=== PATIENT | male | born 1985 | race Caucasian/White ===

== ENCOUNTER 2016-05-26 10:19 | Emergency (ER) | payer MEDICAID ==
[~2016-05-26] VITALS: Ht 162.6 cm; Wt 73.0 kg
[2016-05-26 10:21] VITALS: Ht 162.6 cm; Wt 73.0 kg
[2016-05-26] MEDS ORDERED: IBUPROFEN 600 MG TAB PO ONE (11:00)
--- NOTE | 2016-05-26 11:46 | ERD ---
ER Documentation Chief Complaint Date/Time DATE: 05/26/16 TIME: 11:43 Chief Complaint rt foot pain , soccer injury HPI Patient is a 31-year-old male who presents to the ED with right ankle pain after sustaining an injury playing soccer last night. He states that his foot inverted. He states that the pain is located on his ankles and feet. Denies radiation of pain. Denies numbness or tingling. He states that he is unable to put pressure on his foot and walk. Denies calf pain. Denies pain in his knees. Denies fever or chills. Denies headache, dizziness. Denies hitting his head, passing out or losing consciousness. No other complaints. ROS All systems reviewed and are negative except as per history of present illness. Medications Home Meds Active Scripts Ibuprofen* (Motrin*) 800 Mg Tab, 800 MG PO Q6, #30 TAB Prov:CHELA GUTHRIE PA-C 05/26/16 PMhx/Soc Medical and Surgical Hx: pt denies Medical Hx, pt denies Surgical Hx Physical Exam Vitals Vital Signs Date Time Temp Pulse Resp B/P Pulse Ox O2 Delivery O2 Flow Rate FiO2 05/26/16 10:21 98.7 97 18 156/67 98 Physical Exam GENERAL: Well-developed, well-nourished male. Appears in no acute distress. HEAD: Normocephalic, atraumatic. EYES: Pupils are equally reactive bilaterally. EOMs grossly intact. No conjunctival erythema. ENT: Moist mucous membranes. No uvula deviation. No kissing tonsils. No exudates. NECK: Supple. No lymphadenopathy or thyromegaly. No meningismus. negative kernig. negative brudinski. LUNG: Clear to auscultation bilaterally. No rhonchi, wheezing, rales or coarse breath sounds. HEART: Regular rate and rhythm. No murmurs, rubs or gallops. Extremities: Equal pulses bilaterally. No peripheral clubbing, cyanosis or edema. No unilateral leg swelling. Tenderness to bilateral right malleoli. No proximal fibula pain. No tenderness to the base of the fifth metatarsal. Slightly ecchymosis and swollen. No redness, warmth. No open wounds or laceration. No deformities or step-offs. Range of motion intact. Pulses intact. Negative Homans sign. No pain above the ankle joint. NEUROLOGIC: Alert and oriented. Moving all four extremities. 5/5 strength in all extremities. Normal speech. unsteady gait. SKIN: Normal color. Warm and dry. No rashes or lesions. Capillary refill < 2 seconds Results 24 hrs Current Medications Medications (Trade) Dose Ordered Sig/Denise Route PRN Reason Start Time Stop Time Status Last Admin Dose Admin Ibuprofen (Motrin) 600 mg ONCE ONCE PO 05/26/16 11:00 05/26/16 11:01 DC 05/26/16 11:22 Procedures/MDM ER COURSE: I kept the patient and/or family informed of laboratory and diagnostic imaging results throughout the emergency room course. IMAGING STUDIES [place] [address] Radiology Main Line: [phone] DIAGNOSTIC IMAGING REPORT Patient: JUNIE GUADARRAMA : 1985 Age: 31 Sex: M MR #: [id number] DOS: 05/26/16 1100 Ordering MD: CHELA GUTHRIE PA-C Location: [facility] Room/Bed: PROCEDURE: XR Right Ankle CLINICAL INDICATION: Pain TECHNIQUE: Standard 3 view radiographs were submitted. COMPARISON: T FINDINGS: None available Osseous structures: here is a nondisplaced oblique fracture through the distal fibular metaphysis. The remaining osseous elements appear intact. Joint spaces: The ankle mortise is well maintained. Soft tissues: Soft tissue swelling is seen laterally. IMPRESSION: Nondisplaced oblique fracture of the distal right fibula. Physician Rebekah Date Time Electronically viewed and signed by Physician Rebekah on 05/26/2016 11:49 RH/ CC: CHELA GUTHRIE PA-C [place] [address] Radiology Main Line: [phone] DIAGNOSTIC IMAGING REPORT Patient: JUNIE GUADARRAMA : 1985 Age: 31 Sex: M MR #: [id number] DOS: 05/26/16 1100 Ordering MD: CHELA GUTHRIE PA-C Location: [facility] Room/Bed: PROCEDURE: XR Right Foot CLINICAL INDICATION: Pain TECHNIQUE: AP, oblique, and lateral radiographs were submitted. COMPARISON: None FINDINGS: Osseous structures: appear well mineralized and intact with no fracture or destructive process identified. Joint spaces: There is a mild hallux valgus. The joint spaces are otherwise unremarkable. Soft tissues: appear unremarkable. IMPRESSION: Mild hallux valgus. Physician Rebekah Date Time Electronically viewed and signed by Physician Rebekah on 05/26/2016 12:17 RH/ CC: CHELA GUTHRIE PA-C PROCEDURES Posterior ankle splint. Splint Assessment: Neurovascularly intact post splint placement with good fit. Crutches were given to patient. MEDICAL DECISION MAKING: This is a 31-year-old male who presents with right ankle pain after sustaining an injury playing soccer last night. Vital signs were reviewed. Patient is afebrile. Patient is not hypoxic. X-rays of by radiologist shows Nondisplaced oblique fracture of the distal right fibula. Patient does not have proximal fibula pain. Low suspicion for dislocation, septic joint, compartment syndrome, osteomyelitis, avascular necrosis, DVT, Achilles tendon rupture, cellulitis. At this time, unable to rule out any tendon and ligament injuries. DISCHARGE: At this time, patient is stable for discharge and outpatient management with no new complaints during the ER course. Patient was sent home with copy of x-ray report and ibuprofen for pain and to follow-up with orthopedics this week. Names of orthopedics in the area were given to patient. Patient will be discharged home with instructions to recheck for new or worsening symptoms such as fever, nausea, weakness, LOC and to follow up with primary care in the next 1 -2 days. Patient was advised to return to the ER for any new or worsening symptoms. Plan was discussed and patient and/or family understands and agrees. Home instructions were given. Departure Diagnosis: Primary Impression: Fibula fracture Encounter type: initial encounter Fibula location: distal Fracture type: closed Fracture morphology: unspecified fracture morphology Laterality: right Qualified Code: S82.831A - Closed fracture of distal end of right fibula , unspecified fracture morphology, initial encounter Condition: Stable CHELA GUTHRIE PA-C May 26, 2016 11:46
--- NOTE | 2016-05-26 11:49 | RADRPT ---
PROCEDURE: XR Right Ankle CLINICAL INDICATION: Pain TECHNIQUE: Standard 3 view radiographs were submitted. COMPARISON: T FINDINGS: None available Osseous structures: here is a nondisplaced oblique fracture through the distal fibular metaphysis. The remaining osseous elements appear intact. Joint spaces: The ankle mortise is well maintained. Soft tissues: Soft tissue swelling is seen laterally. IMPRESSION: Nondisplaced oblique fracture of the distal right fibula. Physician Rebekah Date Time Electronically viewed and signed by Alvin Castillo Physician on 05/26/2016 11:49 RH/
--- NOTE | 2016-05-26 12:17 | RADRPT ---
PROCEDURE: XR Right Foot CLINICAL INDICATION: Pain TECHNIQUE: AP, oblique, and lateral radiographs were submitted. COMPARISON: None FINDINGS: Osseous structures: appear well mineralized and intact with no fracture or destructive process iden tified. Joint spaces: There is a mild hallux valgus. The joint spaces are otherwise unremarkable. Soft tissues: appear unremarkable. IMPRESSION: Mild hallux valgus. Physician Rebekah Date Time Electronically viewed and signed by Physician Rebekah on 05/26/2016 12:17 /
[2016-05-26] MEDS ORDERED: IBUP800T25 PO (12:24)
== END 2016-05-26 13:14 | disposition home or self-care (01) ==
LOC: FTE 10:19
DX: S82.831A Other fracture of upper and lower end of right fibula, initial encounter for closed fracture (principal); X50.9XXA Other and unspecified overexertion or strenuous movements or postures, initial encounter; Y92.9 Unspecified place or not applicable
CPT/HCPCS: 29515; 73610; 73630; Z7502; Z7610

== ENCOUNTER 2017-07-29 23:55 | Emergency (ER) | END 2017-07-30 03:20 | disposition home or self-care (01) ==